=== PATIENT | female | born 1965 | race Caucasian/White ===

== ENCOUNTER 2017-12-07 15:36 | Emergency (ER) | payer OTHER ==
[~2017-12-07] VITALS: Ht 160 cm; Wt 99.8 kg
[2017-12-07 18:43] VITALS: BP 113/77
== END 2017-12-07 18:44 | disposition home or self-care (01) ==
LOC: ER 15:37
DX: J20.9 Acute bronchitis, unspecified (principal); J45.909 Unspecified asthma, uncomplicated
CPT/HCPCS: 71045; A4663

== ENCOUNTER 2019-11-27 19:50 | Emergency (ER) | payer OTHER ==
[~2019-11-27] VITALS: Ht 157.5 cm; Wt 101.6 kg
--- NOTE | 2019-11-27 20:05 | NUR ---
Assisting Amanda RN-Patient present to ER with c/o of sore throat, runny nose and cough x 5 days, placed in Bed 4B. Patient in no acute distress. Dr. Foster at bedside, examining patient upon arrival.
--- NOTE | 2019-11-27 20:13 | NUR ---
Strep swab sent to lab.
[2019-11-27] MEDS ORDERED: PENICILLIN G BENZATHINE 2.4 MMU/4 ML DISP.SYRIN IM ONE ×2 (20:45→20:46)
[2019-11-27] MEDS ORDERED: AZITHROMYCIN 250 MG TABLET ONE (20:45)
[2019-11-27] MEDS ORDERED: AZITHROMYCIN 250 MG TABLET PO ONE (20:45)
--- NOTE | 2019-11-27 20:58 | NUR ---
Perla dillard in EDM - 11/27/19 at 2059 by PHANI Spoke with Mckenna at [facility], states that the clinicals are still under review and her charge nurse is still in report.
--- NOTE | 2019-11-27 20:58 | NUR ---
Spoke with Mckenna at [facility], states that the clinicals are still under review and her charge nurse is still in report.
--- NOTE | 2019-11-27 21:19 | NUR ---
Per Dr. Foster patient stable for discharge. DC instructions and prescriptions given and reviewed with patient, verbalized understanding. No adv reactions noted to pcn. Patient left ER in stable condition.
== END 2019-11-27 21:20 | disposition home or self-care (01) ==
LOC: ER 19:55
DX: J03.90 Acute tonsillitis, unspecified (principal)
CPT/HCPCS: 36415; 86403; 87070; A4663; Q0144

== ENCOUNTER 2019-11-28 19:37 | Emergency (ER) | payer OTHER ==
[~2019-11-28] VITALS: Ht 162.6 cm; Wt 102.1 kg
--- NOTE | 2019-11-28 19:48 | NUR ---
Patient presents to ER stating that MD that examined her yesterday instructed her to come back to follow up. Patient is awake, alert and oriented x 4, noted to have a temp of 100.1 at triage, pt noted to have sweaters, vest, scarf and beanie on her person. Patient in no acute distress. Dr. Panchal at bedside examining patient.
[2019-11-28] MEDS ORDERED: KETOROLAC TROMETHAMINE 30 MG INJ IVP ONE (20:00)
[2019-11-28] MEDS ORDERED: IV NS 1000 ML 1,000 ML IV ONE (20:00)
[2019-11-28] MEDS ORDERED: CLINDAMYCIN PHOSPHATE IV 600 MG in IV DEXTROSE 5% 100 ML IV ONE (20:00)
[2019-11-28 20:16] LABS: BASOPHILS % (AUTO) 0.2 % (0.0-2.0); EOSINOPHILS % (AUTO) 0.2 % (0.0-7.0); HEMATOCRIT 44.7 % (31.2-41.9); HEMOGLOBIN 14.9 g/dL (10.9-14.3); LYMPHOCYTES # (AUTO) 1.3 K/uL (20.0-40.0); LYMPHOCYTES % (AUTO) 14.4 % (20.5-51.5); MEAN CORPUSCULAR HEMOGLOBIN 29.2 uug (24.7-32.8); MEAN CORPUSCULAR HGB CONC 33 g/dL (32.3-35.6); MEAN CORPUSCULAR VOLUME 87.2 fL (75.5-95.3); MONOCYTES # (AUTO) 0.8 K/uL (2.0-10.0); NEUTROPHILS # (AUTO) 6.7 K/uL (1.8-8.9); NEUTROPHILS % (AUTO) 76.2 % (38.5-71.5); PLATELET COUNT (AUTO) 264 K/uL (179-408); RED BLOOD CELL COUNT(AUTO) 5.12 MIL/uL (3.63-4.92); WHITE BLOOD COUNT (AUTO) 8.8 K/uL (3.8-11.8)
[2019-11-28] MEDS ORDERED: KETOROLAC TROMETHAMINE 30 MG INJ ONE (20:24)
[2019-11-28] MEDS ORDERED: CLINDAMYCIN PHOSPHATE 600 MG/4 ML VIAL ONE (20:24)
[2019-11-28 20:28] LABS: *MONOTEST NEGATIVE (NEGATIVE); CREATININE 0.8 mg/dL (0.6-1.3); POTASSIUM 3.3 mmol/L (3.5-5.1)
--- NOTE | 2019-11-28 20:48 | NUR ---
CT made aware that pt's labs are back, per transporter radiology, they are currently with at pt.
[2019-11-28] MEDS ORDERED: IV NORMAL SALINE 250 ML IV ONE (21:00)
[2019-11-28] MEDS ORDERED: IOHEXOL 300MG/ML 100 ML INFUS..BTL ONE (21:00)
[2019-11-28] MEDS ORDERED: SWABABLE VALVE TRANSFER SET EA MC ONE (21:00)
--- NOTE | 2019-11-28 21:09 | NUR ---
pt taken to CT.
--- NOTE | 2019-11-28 21:40 | NUR ---
Patient returned from CT. Verbalized pain subsided. No acute distress. Noted temp of 100.1. Dr. Panchal made aware.
--- NOTE | 2019-11-28 22:37 | NUR ---
Per Dr. Panchal, patient is stable for discharge. DC instructions and prescriptions given and reviewed with patient, verbalized understanding. IV dc'd noted with tip intact, pressure applied. No bleeding noted. Patient left ER in stable condition with all belongings.
[2019-11-28 22:39] VITALS: BP 105/62
== END 2019-11-28 22:37 | disposition home or self-care (01) ==
LOC: ER 19:38
DX: J36 Peritonsillar abscess (principal)
CPT/HCPCS: 36415; 70491; 71045; 80048; 85025; 86308; 87040; 96374; 99285; J1885; J3490; J7060; Q9967; A4663; J7030; J7050

== ENCOUNTER 2020-10-02 18:00 | Emergency (ER) | payer OTHER ==
[~2020-10-02] VITALS: Ht 157.5 cm; Wt 102.1 kg
[2020-10-02] MEDS ORDERED: KETOROLAC TROMETHAMINE 60 MG INJ IM ONE ×2 (19:45→19:49)
[2020-10-02] MEDS ORDERED: diphenhydrAMINE 50 MG/1 ML VIAL IM ONE (19:45)
[2020-10-02] MEDS ORDERED: METOCLOPRAMIDE HCL 10 MG/2 ML VIAL IM ONE (19:45)
[2020-10-02] MEDS ORDERED: diphenhydrAMINE 50 MG/1 ML VIAL ONE (19:49)
[2020-10-02] MEDS ORDERED: METOCLOPRAMIDE HCL 10 MG/2 ML VIAL ONE (19:49)
--- NOTE | 2020-10-02 19:50 | NUR ---
PATIENT OUT OF UNIT FOR CT SCAN VIA WHEELCHAIR.
--- NOTE | 2020-10-02 20:00 | NUR ---
Pt back to ER from CT.
--- NOTE | 2020-10-02 20:57 | NUR ---
Patient discharged to home in stable condition. Written and verbal after care instructions given. Patient verbalizes understanding of instructions. Stressed follow up or return to ER for worsening s/s. Patient out of ER with steady gait, no acute signs of distress, VSS, all belongings taken, provided with a copy of CT results.
[2020-10-02 20:59] VITALS: BP 135/80
== END 2020-10-02 20:59 | disposition home or self-care (01) ==
LOC: ER 18:02
DX: R51.9 Headache, unspecified (principal); E66.9 Obesity, unspecified; Z68.41 Body mass index [BMI] 40.0-44.9, adult; R20.0 Anesthesia of skin
CPT/HCPCS: 70450; 96372 ×2; 99284; J1200; J1885; J2765; A4663

== ENCOUNTER 2023-04-17 10:59 | Emergency (ER) | payer OTHER ==
[~2023-04-17] VITALS: Ht 157.5 cm; Wt 102.1 kg
[2023-04-17] MEDS ORDERED: NAPR-1009 PO (11:12)
[2023-04-17 11:19] VITALS: BP 122/90; TEMP 98; O2SAT 99
== END 2023-04-17 11:20 | disposition home or self-care (01) ==
LOC: ER 10:59
DX: M54.50 Low back pain, unspecified (principal); Z79.899 Other long term (current) drug therapy
CPT/HCPCS: A4663